=== PATIENT | male | born 1980 | race Two or more races ===

== ENCOUNTER → 2020-01-11 13:38 | Outpatient (CLI) | payer SELFPAY ==
--- NOTE | 2020-01-11 13:48 | XR_ITS ---
PROCEDURE: XR ANKLE LT MIN 3V CLINICAL INDICATION: LT ANKLE SPRAIN Posttraumatic pain, lateral pain and swelling COMPARISON: No exams were available for comparison FINDINGS: There is a nondisplaced oblique fracture involving the distal fibula at the level of the ankle joint. The fracture line extends in an oblique fashion from the posterior aspect of the shaft of the distal fibula anteriorly and inferiorly to the fibula at the level of the ankle joint. The ankle mortise appears intact and the talar dome has an unremarkable appearance. There is some cortical lobularity of the anterior and distal aspect of the tibia consistent with some bony hypertrophic change. Small calcific density is present along the neck of the talus nonspecific. IMPRESSION: Nondisplaced oblique fracture of the distal fibula Dictated by: Shivam Galindo MD 01/11/2020 14:12 Electronically signed by Shivam Galindo MD in [place] 01/11/2020 14:12
== END ==
PROVIDERS: PCP Family Medicine; Visit Provider Family Medicine
DX: S93.432A Sprain of tibiofibular ligament of left ankle, initial encounter (principal)
CPT/HCPCS: 73610

== ENCOUNTER → 2020-03-14 09:49 | Outpatient (CLI) | payer MEDICAID, SELFPAY ==
--- NOTE | 2020-03-14 09:56 | US_ITS ---
PROCEDURE: US EXTREMITY RT LIMITED CLINICAL INDICATION: RT LOWER LEG PAIN COMPARISON: No exams were available for comparison FINDINGS: General survey is performed of the right lower leg in the area of patient reported pain. Static and video reviewed. No mass or cystic abnormalities demonstrated. No abnormal fluid collections. IMPRESSION: Unremarkable ultrasound of the right leg. MRI may provide further evaluation if clinically desired Dictated by: Shivam Galindo MD 03/16/2020 08:16 Electronically signed by Shivam Galindo MD in [place] 03/16/2020 08:16
== END ==
PROVIDERS: PCP Family Medicine; Visit Provider Family Medicine
DX: M79.604 Pain in right leg (principal)
CPT/HCPCS: 76882

== ENCOUNTER → 2023-03-11 23:27 | Outpatient (CLI) | payer SELFPAY | PROVIDERS: PCP Family Medicine; Visit Provider Family Medicine | DX: R35.0 Frequency of micturition (principal) | CPT/HCPCS: 87086 ==

== ENCOUNTER 2024-03-16 10:26 | Outpatient (CLI) | payer SELFPAY ==
[2024-03-16 19:19] LABS: Alanine Aminotransferase 36 U/L (12-78); Albumin Level 4.3 g/dl (3.5-5.0); Albumin/Globulin Ratio 1.3 (1.1-1.8); Alkaline Phosphatase 66 U/L (38-126); Anion Gap 13.1 mEq/L (5-15); Aspartate Amino Transferase 24 U/L (17-59); Bilirubin,Total 0.6 mg/dl (0.2-1.3); Blood Urea Nitrogen 14 mg/dl (9-20); Calcium 9.4 mg/dl (8.4-10.2); Carbon Dioxide 27 mmol/L (22.0-30.0); Chloride 105 mmol/L (98-107); Chol/HDL Ratio 5.2 (1-3.5); Cholesterol 220 mg/dl (140-200); Estimated Glomerular Filt Rate 105 ml/min (>60); GFR (African American) 127 ML/MIN (>60); Globulin 3.3 g/dL (1.3-3.2); Glucose 115 mg/dl (74-100); HDL Cholesterol 42 mg/dl (40-60); Potassium 4.1 mmoL/L (3.5-5.1); Sodium 141 mmol/L (136-145); Total Protein,Serum 7.6 g/dl (6.3-8.2); Triglycerides 136 mg/dl (30-150); VLDL Cholesterol 27 mg/dL (0-40)
[2024-03-16 19:30] LABS: Direct LDL Cholesterol 133.31 mg/dL (100-129)
[2024-03-16 19:49] LABS: Prostate Specific Ag Screen 1.2 ng/ml (0.0-4.0)
== END 2024-03-16 23:59 | disposition home or self-care (01) ==
LOC: LAB.DROPOF 03-17 10:26
PROVIDERS: PCP Family Medicine; Visit Provider Family Medicine
DX: E78.2 Mixed hyperlipidemia (principal); N40.0 Benign prostatic hyperplasia without lower urinary tract symptoms; E11.9 Type 2 diabetes mellitus without complications
CPT/HCPCS: 80053; 80061; G0103